=== PATIENT | female | born 1975 | race Caucasian/White ===

== ENCOUNTER 2017-05-16 11:06 | Emergency (ER) | payer MEDICAID ==
[~2017-05-16] VITALS: Ht 154.9 cm; Wt 58.5 kg
[2017-05-16 11:06] VITALS: BP_SYST 147
[2017-05-16] MEDS ORDERED: ACETAMINOPHEN/CODEINE 300 MG-30 MG TABLET PO ONE (13:30)
[2017-05-16] MEDS ORDERED: KETOROLAC TROMETHAMINE 60 MG/2 ML VIAL IM ONE (13:45)
[2017-05-16 13:57] VITALS: BP_SYST 145
== END 2017-05-16 13:57 | disposition home or self-care (01) ==
LOC: SED 11:06
DX: G62.9 Polyneuropathy, unspecified (principal); Z88.0 Allergy status to penicillin
CPT/HCPCS: 73030; 81025; 96372; 99284; J1885

== ENCOUNTER 2017-11-24 10:57 | Emergency (ER) | payer MEDICAID ==
[~2017-11-24] VITALS: Ht 154.9 cm; Wt 56.7 kg
[2017-11-24 11:04] VITALS: BP_SYST 166
[2017-11-24] MEDS ORDERED: ALBUTEROL SULFATE 0.083% 2.5 MG/3 ML VIAL.NEB INH ONE (11:15)
[2017-11-24] MEDS ORDERED: PREDNISONE 20 MG TABLET PO ONE (11:45)
[2017-11-24 11:59] VITALS: BP_SYST 154
== END 2017-11-24 12:00 | disposition home or self-care (01) ==
LOC: SED 10:57
DX: J40 Bronchitis, not specified as acute or chronic (principal); R51 Headache; Z88.0 Allergy status to penicillin
CPT/HCPCS: 71045; 94640; 99283; J7512; J7613

== ENCOUNTER 2018-12-11 11:03 | Emergency (ER) | payer MEDICAID ==
[~2018-12-11] VITALS: Ht 154.9 cm; Wt 55.3 kg
[2018-12-11 11:19] VITALS: BP_SYST 141
[2018-12-11] MEDS ORDERED: KETOROLAC TROMETHAMINE 30 MG VIAL IVP ONE (12:00)
[2018-12-11] MEDS ORDERED: NACL 0.9% 1,000 ML IV ONE (12:00)
[2018-12-11 12:29] LABS: BASOPHILS % (AUTO) 0.9 % (0.0-2.0); EOSINOPHILS # (AUTO) 0.1 K/uL (0.0-0.4); EOSINOPHILS % (AUTO) 1.2 % (0.0-4.0); LYMPHOCYTES # (AUTO) 1.4 K/uL (1.0-5.5); LYMPHOCYTES % (AUTO) 28.9 % (20.5-51.5); MEAN CORPUSCULAR HEMOGLOBIN 33 pg (27-31); MEAN CORPUSCULAR HGB CONC 34 % (32-36); MEAN CORPUSCULAR VOLUME 97 fL (79.0-98.0); MONOCYTES # (AUTO) 0.5 K/uL (0.0-1.0); MONOCYTES % (AUTO) 9.6 % (1.7-9.3); NEUTROPHILS % (AUTO) 59.4 % (40.0-70.0); PLATELET COUNT (AUTO) 318 K/uL (130-430); RED BLOOD CELL COUNT(AUTO) 4.23 MIL/uL (4.2-6.2); RED CELL DISTRIBUTION WIDTH 13.4 % (9.0-15.0)
[2018-12-11 12:38] LABS: CALCIUM 8.9 mg/dL (8.4-11.0); CREATININE 0.6 mg/dL (0.55-1.30); POTASSIUM 3.4 mmol/L (3.5-5.1)
[2018-12-11 12:43] LABS: TOTAL BILIRUBIN 0.8 mg/dL (0.0-1.0)
[2018-12-11 12:50] LABS: BILIRUBIN,URINE NEGATIVE (NEGATIVE); BLOOD, URINE 2+ (NEGATIVE); CLARITY/URINE CLEAR (CLEAR); COLOR,URINE YELLOW (YELLOW); GLUCOSE,URINE NEGATIVE (NEGATIVE); KETONES,URINE NEGATIVE (NEGATIVE); LEUKOCYTE ESTERASE ,URINE NEGATIVE (NEGATIVE); NITRITE, URINE NEGATIVE (NEGATIVE); PROTEIN URINE NEGATIVE (NEGATIVE); UROBILINOGEN,URINE 0.2 (0.2-1.0)
[2018-12-11 12:56] LABS: BACTERIA,URINE FEW /HPF (None Seen); WBC,URINE 0-3 /HPF (0-3)
[2018-12-11 14:40] VITALS: BP_SYST 141
== END 2018-12-11 14:40 | disposition home or self-care (01) ==
LOC: SED 11:03
DX: R10.13 Epigastric pain (principal); Z88.0 Allergy status to penicillin
CPT/HCPCS: 36415; 74176; 80053; 81000; 81025; 85025; 96374; 99284; J1885; J7030

== ENCOUNTER 2021-09-18 09:18 | Emergency (ER) | payer MEDICAID, OTHER ==
[~2021-09-18] VITALS: Ht 154.9 cm; Wt 63.5 kg
--- NOTE | 2021-09-18 09:18 | NUR ---
BROUGHT OUT TO TRIAGE TENT AND TRIAGED, WILL ASSUME CARE
[2021-09-18 09:20] VITALS: BP_SYST 145
--- NOTE | 2021-09-18 09:27 | NUR ---
PT STATES LAST 6 DAYS WITH DRY COUGH, HEADACHES. STATES NO FEVERS. STATES SHE NEEDS TO GET A COVID TEST FOR WORK
--- NOTE | 2021-09-18 09:30 | NUR ---
DR CARRANZA OUT TO TRIAGE TENT FOR EVALUATION
--- NOTE | 2021-09-18 09:48 | NUR ---
COVID TEST OBTAINED AND SENT TO LAB, PT TOLERATED IT WELL.
--- NOTE | 2021-09-18 10:10 | NUR ---
AWAITING TEST RESULTS.
--- NOTE | 2021-09-18 10:55 | NUR ---
DR CARRANZA OUT TO SPEAK WITH PT.
[2021-09-18] MEDS ORDERED: NIRM1TAB PO (11:05)
[2021-09-18 11:15] VITALS: BP_SYST 131
--- NOTE | 2021-09-18 11:16 | NUR ---
Patient given written and verbal discharge instructions and verbalizes understanding. ER MD discussed with patient the results and treatment provided. Patient in stable condition. ID arm band removed. Rx of PAXLOVID given. Patient educated on pain management and to follow up with PMD. Pain Scale 0/10. Opportunity for questions provided and answered. Medication side effect fact sheet provided.
== END 2021-09-18 11:16 | disposition home or self-care (01) ==
LOC: SED 09:18
DX: U07.1 COVID-19 (principal); J40 Bronchitis, not specified as acute or chronic; Z88.0 Allergy status to penicillin
CPT/HCPCS: 36415; 71045; 99283

== ENCOUNTER 2022-11-17 18:26 | Emergency (ER) | payer OTHER ==
[~2022-11-17] VITALS: Ht 154.9 cm; Wt 56.7 kg
[2022-11-17 18:47] VITALS: BP_SYST 175; PULSE 110; RESP 18; TEMP 97.9; O2SAT 99
[2022-11-17] MEDS ORDERED: IBUPROFEN 800 MG TABLET PO ONE (21:00)
[2022-11-17] MEDS ORDERED: HYDROcodone/ACETAMIN 5-325 MG TAB (NORCO/ VICODIN) PO ONE (21:00)
[2022-11-17] MEDS ORDERED: BACITRACIN ZINC 15 GM TOPICAL OINTMENT TP ONE (21:00)
[2022-11-17] MEDS ORDERED: BACITRACIN 1 GM OINT TP ONE (21:07)
[2022-11-17] MEDS ORDERED: BACI15OI13 TP (21:24)
[2022-11-17] MEDS ORDERED: IBUP-1971 PO (21:24)
[2022-11-17 21:45] VITALS: BP_SYST 185; PULSE 75; RESP 16; TEMP 97.9; O2SAT 97
== END 2022-11-17 21:45 | disposition home or self-care (01) ==
LOC: SED 18:26
DX: T23.101A Burn of first degree of right hand, unspecified site, initial encounter (principal); Z88.0 Allergy status to penicillin; Z79.899 Other long term (current) drug therapy; X08.8XXA Exposure to other specified smoke, fire and flames, initial encounter; Y93.89 Activity, other specified; Y92.89 Other specified places as the place of occurrence of the external cause; Y99.8 Other external cause status
CPT/HCPCS: 99284

== ENCOUNTER 2023-01-05 17:50 | Emergency (ER) | payer OTHER ==
[~2023-01-05] VITALS: Ht 154.9 cm; Wt 55.8 kg
[~2023-01-05 17:50] MED LIST: BACI15OI13 TP; IBUP-1971 PO
[2023-01-05 18:05] VITALS: BP_SYST 159; PULSE 70; RESP 18; TEMP 97.8; O2SAT 98
[2023-01-05] MEDS ORDERED: IBUP-1970 PO (20:38)
[2023-01-05] MEDS ORDERED: ACET-2634 PO (20:38)
[2023-01-05] MEDS ORDERED: KETOROLAC TROMETHAMINE 30 MG VIAL IM ONE (20:45)
[2023-01-05] MEDS ORDERED: ACETAMINOPHEN 500 MG TABLET PO ONE (20:45)
[2023-01-05 21:00] VITALS: BP_SYST 155; PULSE 68; RESP 18; TEMP 97.7; O2SAT 97
== END 2023-01-05 21:00 | disposition home or self-care (01) ==
LOC: SED 17:50
DX: S60.221A Contusion of right hand, initial encounter (principal); Z88.0 Allergy status to penicillin; Z79.899 Other long term (current) drug therapy; W18.40XA Slipping, tripping and stumbling without falling, unspecified, initial encounter; Y93.89 Activity, other specified; Y92.89 Other specified places as the place of occurrence of the external cause; Y99.8 Other external cause status
CPT/HCPCS: 99283; 73130; 29125; 96372; J1885